=== PATIENT | female | born 2000 | race Native Hawaiian/Other Pacific Islander ===

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

== ENCOUNTER 2021-04-28 05:53 | Emergency (ER) | payer OTHER ==
[~2021-04-28] VITALS: Ht 170.2 cm; Wt 93.9 kg
[2021-04-28 06:06] VITALS: TEMP 98.6
[2021-04-28 06:42] LABS: PLATELET COUNT 236 K/uL (152-353)
[2021-04-28 06:47] LABS: POTASSIUM 3.6 mmol/L (3.6-5.2)
[2021-04-28 08:20] VITALS: BP 128/82
== END 2021-04-28 09:13 | disposition home or self-care (01) ==
LOC: ED 05:53
PROVIDERS: Family Medicine
DX: O21.0 Mild hyperemesis gravidarum (principal); O23.31 Infections of other parts of urinary tract in pregnancy, first trimester; Z3A.09 9 weeks gestation of pregnancy
CPT/HCPCS: 36415; 80053; 81000; 85027; 87086; 87088; 96360; 96365; 96375; 99284; J0696; J2550

== ENCOUNTER 2021-06-18 19:42 | Emergency (ER) | payer OTHER ==
[~2021-06-18] VITALS: Ht 170.2 cm; Wt 72.6 kg
[2021-06-18 19:42] VITALS: TEMP 97.2
[2021-06-18 21:48] VITALS: BP 111/65
== END 2021-06-18 22:05 | disposition short-term general hospital (02) ==
LOC: ED 19:42
DX: O20.0 Threatened abortion (principal); Z3A.20 20 weeks gestation of pregnancy
CPT/HCPCS: 82948; 96360; 96372; 96375; 99284; J2405; J3105

== ENCOUNTER 2022-08-11 15:43 | Outpatient (CLI) | payer OTHER | END 2022-08-11 23:14 | disposition home or self-care (01) | LOC: RAD 15:43 | PROVIDERS: ATTEND Nurse Practitioner Family | DX: I10 Essential (primary) hypertension (principal); I34.1 Nonrheumatic mitral (valve) prolapse; R00.2 Palpitations | CPT/HCPCS: 93005 ==

== ENCOUNTER 2022-10-25 09:37 | Outpatient (CLI) | payer OTHER | END 2022-10-25 20:33 | disposition home or self-care (01) | LOC: MRI 09:37 | PROVIDERS: ATTEND Nurse Practitioner Family | DX: I10 Essential (primary) hypertension (principal); G40.909 Epilepsy, unspecified, not intractable, without status epilepticus; R55 Syncope and collapse ==